=== PATIENT | male | born 1975 | race Caucasian/White ===

== ENCOUNTER 2017-12-03 13:21 | Emergency (ER) | payer OTHER ==
[2017-12-03] MEDS ORDERED: Indocin 25 MG PO ONE (14:06)
--- NOTE | 2017-12-03 14:12 | ERPHSYRPT ---
- History of Present Illness Time Seen by Provider: 12/03/17 14:00 Source: patient Exam Limitations: clinical condition Patient Subjective Stated Complaint: PT REPORTS PAIN ET SWELLING REDNESS TO GREAT TOE OF LEFT FOOT-DENIES INJURY-REPORTS PAIN WITH PRESSURE Triage Nursing Assessment: PT PINK WARM ET [id number] WARMTH ET SWELLING NOTED TO JOINT OF GREAT TOE Physician History: PATIENT COMPLAINS OF PAIN, SWELLING OF RIGHT GREAT TOE FOR 1 WEEK, CONSTANT PAIN. DENIES FEVER, TRAUMA OR INJURY. DENIES DEFORMITY OR BRUISING Method of Injury: other (NONE) Occurred: last week Quality: constant Severity of Pain-Max: moderate Severity of Pain-Current: moderate Lower Extremities Pain: 1st toe: right Modifying Factors: Improves With: movement Associated Symptoms: other (PAIN UPON WEIGHT BEARING) Allergies/Adverse Reactions: No Known Drug Allergies Allergy (Unverified 12/03/17 13:58) Hx Tetanus, Diphtheria Vaccination/Date Given: Yes Hx Influenza Vaccination/Date Given: No Hx Pneumococcal Vaccination/Date Given: No Immunizations Up to Date: Yes - Review of Systems Constitutional: No Fever, No Chills Ears, Nose, & Throat: No Symptoms Respiratory: No Cough, No Dyspnea Cardiac: No Chest Pain, No Edema, No Syncope Abdominal/Gastrointestinal: No Abdominal Pain, No Nausea, No Vomiting, No Diarrhea Genitourinary Symptoms: No Dysuria Musculoskeletal: Joint Redness, Joint Pain, Joint Swelling, No Back Pain, No Neck Pain Skin: No Rash Neurological: No Dizziness, No Focal Weakness, No Sensory Changes Psychological: No Symptoms Endocrine: No Symptoms All Other Systems: Reviewed and Negative - Past Medical History Pertinent Past Medical History: No - Past Surgical History Past Surgical History: No - Social History Smoking Status: Never smoker Exposure to second hand smoke: No Drug Use: none Patient Lives Alone: No - Nursing Vital Signs Nursing Vital Signs: Initial Vital Signs Temperature 98.7 F 12/03/17 13:52 Pulse Rate 85 12/03/17 13:52 Respiratory Rate 20 12/03/17 13:52 Blood Pressure 145/99 12/03/17 13:52 O2 Sat by Pulse Oximetry 97 12/03/17 13:52 Pain Scale Pain Intensity 5 - Physical Exam General Appearance: no apparent distress, alert Foot Exam: right foot: pain, soft tissue tenderness (SLIGHT WARMTH), swelling Neuro/Tendon Exam: normal sensation, normal motor functions Mental Status Exam: alert, oriented x 3, cooperative Skin Exam: normal color, warm, dry SpO2: 97 Oxygen Delivery: Room Air Ordered Tests: Active Orders 24 hr Category Date Time Status Crutches STAT Care 12/03/17 14:05 Active Uric Acid Stat Lab 12/03/17 14:20 Completed Medication Summary Discontinued Medications Generic Name Dose Route Start Last Admin Trade Name Tanvirq PRN Reason Stop Dose Admin Indomethacin 50 mg 12/03/17 14:06 12/03/17 14:25 Indocin 25 Mg PO 12/03/17 14:07 50 mg STAT ONE Administration Indomethacin Confirm 12/03/17 14:23 Indocin 25 Mg Administered 12/03/17 14:24 Dose 50 mg .ROUTE .STK-MED ONE Lab/Rad Data: Laboratory Results 12/03/17 Range/Units 14:20 Uric Acid 7.5 H (3.5-7.2) mg/dL - Progress Progress Note: 12/03/17 14:12 ADMINISTERED INDOCIN 50MG ORALLY, URIC ACID 7.5 12/03/17 14:13 12/03/17 15:31 Counseled pt/family regarding: lab results, diagnosis, need for follow-up, rad results - Departure Time of Disposition: 15:35 Departure Disposition: Home 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 INDOCIN 25MG EVERY 8 HOURS FOR PAIN FOR 7 DAYS. NORCO 10/325 EVERY 4 HOURS FOR SEVERE PAIN. CONSULT YOUR PRIMARY CARE PROVIDER FOR FOLLOWUP WITHIN 1 WEEK. Prescriptions: Hydrocodone/APAP 10/325 mg [[place] 10/325 MG Tablet] 1 tab PO Q4H PRN PRN # 15 tablet MDD 4 PRN Reason: Pain Indomethacin 25 mg [Indocin 25 MG] 25 mg PO TID #21 capsule
[2017-12-03] MEDS ORDERED: Indocin 25 MG ONE (14:23)
[2017-12-03 15:43] VITALS: BP 138/88; PULSE 99; O2SAT 99
== END 2017-12-03 15:45 | disposition home or self-care (01) ==
LOC: ED 13:21
DX: M10.9 Gout, unspecified (principal)
CPT/HCPCS: 36415; 84550; 99283; A9270-GY

== ENCOUNTER 2018-02-19 11:21 | Emergency (ER) | payer SELFPAY ==
[2018-02-19] MEDS ORDERED: TORAdol 30 mg Injection IM ONE (11:38)
[2018-02-19] MEDS ORDERED: TORAdol 30 mg Injection ONE (11:41)
--- NOTE | 2018-02-19 11:48 | ERPHSYRPT ---
- History of Present Illness Time Seen by Provider: 02/19/18 11:36 Source: patient Exam Limitations: no limitations Patient Subjective Stated Complaint: Right Knee Pain, states he believes he has gout, denies injury. Triage Nursing Assessment: Pt presents to the ED with complaints of right knee pain, denies injury. Pt states onset x3 days, worsening in certain positions. Pt states he has tried cold, heat, tylenol and motrin. Pt states he believes he has gout. No distress noted. Pt is able to ambulate. Skin PWD. Physician History: PT started c/o right knee pain few days ago, denies fall, injury, no fever, chills, other complaints. He states, he has been treated with gout in the past, but has never had it in his knee, only in his toes. Method of Injury: unknown Occurred: days ago (2) Quality: constant, sharpness Severity of Pain-Max: severe Severity of Pain-Current: severe Lower Extremities Pain: knee: right Modifying Factors: Improves With: movement Associated Symptoms: none Allergies/Adverse Reactions: No Known Drug Allergies Allergy (Verified 02/19/18 11:33) Home Medications: Clonazepam 0.5 mg [Klonopin 0.5 MG] 0.5 mg PO TIDPRN PRN 02/19/18 [History ] Hx Tetanus, Diphtheria Vaccination/Date Given: Yes Hx Influenza Vaccination/Date Given: No Hx Pneumococcal Vaccination/Date Given: No Immunizations Up to Date: No - Review of Systems Constitutional: No Symptoms Musculoskeletal: Joint Pain, Other (right knee pain) All Other Systems: Reviewed and Negative - Past Medical History Pertinent Past Medical History: Yes Cardiac History: Hypertension Musculoskeletal History: Other (Gout) Psycho-Social History: Anxiety - Past Surgical History Past Surgical History: No - Social History Smoking Status: Former smoker Exposure to second hand smoke: No Drug Use: none Patient Lives Alone: No - Nursing Vital Signs Nursing Vital Signs: Initial Vital Signs Temperature 97.5 F 02/19/18 11:27 Pulse Rate 71 02/19/18 11:27 Respiratory Rate 16 02/19/18 11:27 Blood Pressure 137/96 02/19/18 11:27 O2 Sat by Pulse Oximetry 99 02/19/18 11:27 Pain Scale Pain Intensity 10 - Physical Exam General Appearance: no apparent distress Eyes, Ears, Nose, Throat Exam: normal ENT inspection Neck Exam: normal inspection, non-tender, supple Cardiovascular/Respiratory Exam: chest non-tender, normal breath sounds, regular rate/rhythm, heart sounds normal Gastrointestinal/Abdominal Exam: non-tender, soft, no organomegaly, No tenderness Knees Exam: right knee: pain, soft tissue tenderness (mild, diffuse, anterior tenderness, no redness, or warmth, no effusion, or severe laxity, no popliteal mass or tenderness.), other (no capf tenderness, or swelling, good distal pulses.) Ankle Exam: right ankle: non-tender Foot Exam: right foot: non-tender Neuro/Tendon Exam: normal motor functions Mental Status Exam: alert, oriented x 3 Skin Exam: normal color, warm, dry, No rash SpO2 Interpretation: normal SpO2: 99 Oxygen Delivery: Room Air - Course Nursing assessment & vital signs reviewed: Yes - Radiology Exams Knee X-ray Interpretation: Reviewed by me, Negative Ordered Tests: Active Orders 24 hr Category Date Time Status KNEE (3 VIEWS) Stat Exams 02/19/18 11:53 Completed Medication Summary Discontinued Medications Generic Name Dose Route Start Last Admin Trade Name Freq PRN Reason Stop Dose Admin Ketorolac Tromethamine 60 mg 02/19/18 11:38 02/19/18 11:43 Toradol 30 Mg Injection IM 02/19/18 11:39 60 mg STAT ONE Administration Ketorolac Tromethamine Confirm 02/19/18 11:41 Toradol 30 Mg Injection Administered 02/19/18 11:42 Dose 60 mg .ROUTE .STK-MED ONE - Progress Progress: improved Progress Note: 02/19/18 12:11 Pt has been afebrile, no severe pain or distress, stable. 02/19/18 12:13 Pt was given Lortab 10 Po Q6h PRN #10, no RF, and Indocin 25 mg Po TID PRN for pain #15 tab. - Departure Time of Disposition: 12:11 Departure Disposition: Home Clinical Impression: Knee pain, acute Qualifiers: Laterality: right Qualified Code(s): M25.561 - Pain in right knee Gout Qualifiers: Gout site: knee Gout etiology: unspecified cause Chronicity: acute Laterality: right Qualified Code(s): M10.9 - Gout, unspecified Condition: Stable Critical Care Time: No Referrals: ZACH ELDRIDGE MD [Primary Care Provider] - Additional Instructions: Rest with elevated leg x 2-3 days, apply ice or cold compresses to swelling, return if severe pain, fever> 102 F, follow up with your PCP next week!
--- NOTE | 2018-02-19 11:58 | XRAY ---
Indication: Pain 3 days. No known injury. Comparison: None 3 views of the right knee demonstrates tiny medial condyle bone island. No other bony, articular, or soft tissue abnormalities.
[2018-02-19 12:28] VITALS: BP 136/89; PULSE 70; O2SAT 98
== END 2018-02-19 12:29 | disposition home or self-care (01) ==
LOC: ED 11:21
DX: M25.561 Pain in right knee (principal); M10.9 Gout, unspecified
CPT/HCPCS: 73562; 96372; 99283; 99284; J1885

== ENCOUNTER 2019-11-14 13:07 | Emergency (ER) | payer SELFPAY ==
[2019-11-14 13:32] VITALS: BP 136/95; PULSE 100
--- NOTE | 2019-11-14 13:42 | ERPHSYRPT ---
- History of Present Illness Time Seen by Provider: 11/14/19 13:25 Source: patient Exam Limitations: no limitations Patient Subjective Stated Complaint: STATES "I HAVE GOUT IN MY KNEE". STATES IS HAVING PAIN IN RIGHT KNEE FOR THREE DAYS. STATES HAS HX GOUT. HAS TAKEN TYLENOL WITHOUT RELIEF. Triage Nursing Assessment: AMBULATED TO ROOM LIMPING ON RIGHT LEG. SKIN W/D, COLOR NORMAL, RESP EASY. RIGHT KNEE NORMAL COLOR. NO SWELLING NOTED. Physician History: since 2 days ago pt has had a gout flair-up in his right knee; denies recent injury, fever, chest pain. Allergies/Adverse Reactions: ibuprofen Adverse Reaction (Verified 11/14/19 13:24) Nausea Home Medications: Clonazepam 0.5 mg [Klonopin 0.5 MG] 0.5 mg PO TIDPRN PRN 02/19/18 [History ] Hx Tetanus, Diphtheria Vaccination/Date Given: No Hx Influenza Vaccination/Date Given: Yes Hx Pneumococcal Vaccination/Date Given: No - Review of Systems Constitutional: No Fever Respiratory: No Dyspnea Cardiac: No Chest Pain Musculoskeletal: Joint Pain (right knee) All Other Systems: Reviewed and Negative - Past Medical History Pertinent Past Medical History: Yes Cardiac History: Hypertension Musculoskeletal History: Other Psycho-Social History: Anxiety Other Medical History: GOUT - Past Surgical History Past Surgical History: No - Social History Smoking Status: Former smoker Exposure to second hand smoke: No Drug Use: none Patient Lives Alone: No - Nursing Vital Signs Nursing Vital Signs: Initial Vital Signs Temperature 97.5 F 11/14/19 13:14 Pulse Rate 100 H 11/14/19 13:14 Respiratory Rate 18 11/14/19 13:14 Blood Pressure 136/95 11/14/19 13:14 Pain Scale Pain Intensity 10 - Physical Exam General Appearance: alert Eyes, Ears, Nose, Throat Exam: pharynx normal, moist mucous membranes Neck Exam: normal inspection Cardiovascular/Respiratory Exam: normal breath sounds, heart sounds normal Gastrointestinal/Abdominal Exam: soft (b.s. normal) Back Exam: normal range of motion Hips Exam: bilateral: normal range of motion Legs Exam: bilateral leg: normal range of motion Knees Exam: bilateral knee: normal range of motion Neuro/Tendon Exam: normal sensation Mental Status Exam: alert, cooperative Skin Exam: warm, dry - Course Nursing assessment & vital signs reviewed: Yes Ordered Tests: Medication Summary Generic Name Dose Route Start Last Admin Trade Name Melissa PRN Reason Stop Dose Admin Hydrocodone Bitart/Acetaminophen 2 tab 11/14/19 14:05 [place] 5/325 Mg PO 11/14/19 14:06 SENT HOME W/ PATIENT ONE - Progress Progress: unchanged - Departure Departure Disposition: Home Clinical Impression: Gout attack Condition: Fair Critical Care Time: No Referrals: ZACH ELDRIDGE MD [Primary Care Provider] - Instructions: Knee Pain (DC) Additional Instructions: follow up with private doctor tomorrow. Prescriptions: Colchicine 0.6 mg PO DAILY #10 tablet
[2019-11-14] MEDS ORDERED: NORCO 5/325 MG PO ONE (14:05)
[2019-11-14] MEDS ORDERED: NORCO 5/325 MG ONE (14:13)
== END 2019-11-14 14:19 | disposition home or self-care (01) ==
LOC: ED 13:07
DX: M10.9 Gout, unspecified (principal); I10 Essential (primary) hypertension; F41.9 Anxiety disorder, unspecified
CPT/HCPCS: 99283; A9270-GY